=== PATIENT | female | born 1970 | race Caucasian/White ===

== ENCOUNTER 2022-09-12 11:00 | Outpatient (RCR) | payer OTHER, SELFPAY ==
--- NOTE | 2022-08-06 12:05 | HMH.PTOPEV ---
PT Outpatient Evaluation Rehab PT Outpatient Evaluation Start: 08/06/22 08:06 Freq: Status: Active Protocol: Document 08/06/22 11:36 PHOMICAELA (Rec: 08/06/22 12:05 PHORWESLEY [id number]) E-signed By Alonzo Lopez, PT Outpatient Therapy Subjective History Subjective History This is the initial PT eval for Johanne Fox 51 yowf who presents with c/o R knee pain x several mos and R heel/foot pain x several years. She reports the heel pain is significantly worse and her knee appears to be feeling better. She presents with point tenderness in the medial R heel. She reports no co numbness or tingling. She does report shoe inserts helped her symptoms slightly, but her work requires standing in steel-toed shoes for long hours during the day. She reports no significant PMH. Chief Complaint Pain Symptom Type Ache,Throb,Sharp,Stabbing Symptoms Relieved By Rest/Positioning Symptoms Aggravated By Walking Prior Functional Limitations None Current Functional Limitations Standing,Walking Symptom Description Intermittent,Activity Dependent Level of pain today (0-10) 2 Pain scale - at its worst (0-10) 8 Ankle/Foot Eval Gait Observation General Gait Pattern Observation No Deviations/Normal Palpation Tenderness right Ankle/Foot Palpation Findings Tenderness Ankle/Foot Palpation Overall Comment R med calc tub 2/4 ROM Ankle/Foot Dorsiflexion w/Knee Extended 0-10 Active Range Motion (degrees) Ankle/Foot Plantar Flexion Active Range 0-45 of Motion (degrees) Ankle/Foot Eversion Active Range of 0-20 Motion (degrees) Ankle/Foot Inversion Active Range of 0-35 Motion (degrees) MMT bilateral Ankle Dorsiflexion Strength Grade 5 Normal Ankle Plantarflexion Strength Grade 5 Normal Foot Eversion Strength Grade 5 Normal Foot Inversion Strength Grade 5 Normal Outpatient Therapy Assessment Impairments Problems/Impairmments Palpation Tenderness,Impaired Range of Motion,Impaired Walking,Impaired Standing, Impaired Recreational Activities,Increased Edema, Subjective C/O Pain,Impaired
--- NOTE | 2022-09-05 12:42 | HMH.RHREAS ---
Rehab Reassessment Rehab OP Re-assessment Start: 09/05/22 12:32 Freq: Status: Active Protocol: Document 09/05/22 12:35 PHOMICAELA (Rec: 09/05/22 12:42 PHORWESLEY [id number]) E-signed By Alonzo Lopez, PT Rehab Re-assessment Subjective Subjective Pt currently reports no pain at all 0/10, but at worst pain is 7/10. This pain is somewhat intermittent, but is typically worse after her shift at work. Pt reports knee pain is much better and no longer problematic. Objective Objective Notes AROM R ankle (in deg): DF= 0- 14, PF= 0-44, INV= 0-40, EVER= 0-29 MMT to R ankle remains 5/5 throughout all dir. R medial calc tubercle TTP 1/4 . Assessment Progress Assessment Slower Than Expected Assessment Notes Pt has shown improvements in AROM of the R ankle and decreased overall pain, however her pain does remain increased with prolonged work activities. Likely due to long bouts of standing and requirement for steel toed shoes. Pt continues to need skilled intevention to return to prior pain-free level of function. Patient goals met ST,2,3,[address] LT,2,3,4,5,6 Revised Goals none Plan Plan Continue per initial POC. Possible X-ray may assist with differential diagnosis. Frequency of Therapy 2 x/wk Duration of therapy 4 wks Time and Billing Re-Eval Time 15 Re-Eval Billing Units 1 PHYSICIAN CERTIFICATION: I certify the specified therapy services for Johanne Fox are required, authorized, and reviewed every 30 days.
== END 2022-09-12 11:05 | disposition home or self-care (01) ==
LOC: PT 11:00
PROVIDERS: PCP Family Medicine; Visit Provider Physician Assistant
DX: M25.561 Pain in right knee (principal); M72.2 Plantar fascial fibromatosis
CPT/HCPCS: 97035; 97110; 97140; 97163; 97164

== ENCOUNTER → 2022-12-11 11:05 | Outpatient (CLI) | payer OTHER, SELFPAY ==
--- NOTE | 2022-12-11 11:08 | XR_ITS ---
FINAL REPORT CLINICAL HISTORY: foot pain COMPARISON: None FINDINGS: RIGHT FOOT 3 views of the right foot were obtained. There is no acute fracture or dislocation. Visualized joint spaces are normally aligned. Soft tissues are unremarkable. There is a small plantar calcaneal spur. There is cortical thickening of the shafts of the second third and fourth proximal phalanges with slight angulation of the distal second proximal phalanx. This is most compatible with healed fracture deformities. IMPRESSION: Small plantar calcaneal spur. Healed fracture deformities of the second, third, and fourth proximal phalanges. Reviewed, Interpreted and Dictated by Mirza Calle MD Transcribed by Julia Lr Authenticated and [facility]
== END ==
PROVIDERS: PCP Family Medicine; Visit Provider Nurse Practitioner Family
DX: M79.671 Pain in right foot (principal)
CPT/HCPCS: 73630

== ENCOUNTER 2023-02-08 09:30 | Outpatient (RCR) | payer OTHER, SELFPAY ==
--- NOTE | 2023-01-16 09:22 | HMH.PTOPEV ---
PT Outpatient Evaluation Rehab PT Outpatient Evaluation Start: 01/16/23 08:59 Freq: Status: Active Protocol: Document 01/16/23 09:00 BITA (Rec: 01/16/23 09:22 BITA [id number]) E-signed By Meir Trevino, PT Outpatient Therapy Subjective History Subjective History Patient is a 52 year old female presenting to outpatient PT with reports of R foot/ankle pain of insidious onset starting approx 3 years ago that has progressively gotten worse. Most recent imaging indicates calcaneal spur and healed deformities of the 2/3/4 prox phalanges. Patient most recently received an injection, which has provided some significant relief. Patient reports pain am>pm. No other comorbidities to report. New diagnosis of cancer in past 12 No months? Chief Complaint Pain Symptom Type Throb,Shooting Symptoms Relieved By Rest/Positioning Symptoms Aggravated By Standing,Physical Activity, Walking Prior Functional Limitations None Current Functional Limitations Standing,Walking Symptom Description Intermittent Level of pain today (0-10) 1 Pain scale - at its best (0-10) 0 Pain scale - at its worst (0-10) 4 Ankle/Foot Eval Gait Observation General Gait Pattern Observation No Deviations/Normal Assistive Device Ambulation Assistive Device None Palpation Tenderness right Ankle/Foot Palpation Findings Tenderness Ankle/Foot Palpation Overall Comment calcaneal tubercle 2/4 ROM Ankle/Foot Dorsiflexion w/Knee Extended 12 Active Range Motion (degrees) Ankle/Foot Plantar Flexion Active Range WNL of Motion (degrees) Ankle/Foot Eversion Active Range of 12 Motion (degrees) Ankle/Foot Inversion Active Range of WNL Motion (degrees) Ankle/Foot ROM Limitations Soft Tissue Tightness Great Toe ROM Reason Not Measured Within Functional Limits MMT Ankle Dorsiflexion Strength Grade 5 Normal Ankle Plantarflexion Strength Grade 5 Normal Foot Eversion Strength Grade 4 Good Foot Inversion Strength Grade 4 Good Special Tests Ankle Anterior Drawer Test Negative Right Foot Interdigital Neuroma Test Negative Right Lower Extremity Functional Index Activities Today, do you or would you have any difficulty at all with: a.Any of your usual work, housework or No difficulty school activities
== END 2023-02-08 09:35 | disposition home or self-care (01) ==
LOC: PT 09:30
PROVIDERS: PCP Family Medicine; Visit Provider Nurse Practitioner Family
DX: M79.671 Pain in right foot (principal); M72.2 Plantar fascial fibromatosis
CPT/HCPCS: 97110; 97163; 97530; 97760

== ENCOUNTER 2023-10-07 15:40 | Outpatient (RCR) | payer OTHER, SELFPAY | END 2023-10-07 16:30 | disposition home or self-care (01) | LOC: PT 15:40 | PROVIDERS: Visit Provider Nurse Practitioner | DX: M79.671 Pain in right foot (principal); M72.2 Plantar fascial fibromatosis | CPT/HCPCS: 97760 ==